=== PATIENT | female | born 1945 | race Caucasian/White ===

== ENCOUNTER 2016-05-25 18:33 | Emergency (ER) | payer MEDICARE ==
[~2016-05-25] VITALS: Ht 167.6 cm; Wt 70.3 kg
--- NOTE | 2016-05-25 18:33 | NUR ---
Dayshift: Patient to ER bed 06 to gown for evaluation. Side rails up. Report given to
[2016-05-25 18:36] VITALS: BP 240/117; PULSE 86; RESP 18; TEMP 97.1; O2SAT 96
--- NOTE | 2016-05-25 18:38 | NUR ---
Patient brought by BLS for right knee deformity in air splint upon arrival s/p slip and fall on wet ground, no K.O.
--- NOTE | 2016-05-25 18:39 | NUR ---
MD Jon at bedside.
[2016-05-25] MEDS ORDERED: LIP20 (18:41)
[2016-05-25] MEDS ORDERED: LISI10TA (18:41)
[2016-05-25] MEDS ORDERED: LORazepam 2 MG/ML VIAL (FOR ER USE) IM ONE (18:45)
[2016-05-25] MEDS ORDERED: MORPHINE 2 MG/ML INJ. SYRINGE IVP ONE (19:15)
[2016-05-25] MEDS ORDERED: ONDANSETRON HCL 4 MG/2 ML VIAL IVP ONE (19:15)
[2016-05-25 19:33] LABS: INR 1.1 (0.8-1.2); PROTHROMBIN TIME 11.8 SECS (9.5-12.5)
[2016-05-25] MEDS ORDERED: cloNIDine HCL 0.1 MG TABLET PO ONE (20:45)
[2016-05-25 21:39] VITALS: BP 185/85; PULSE 72; RESP 16; TEMP 97.9; O2SAT 99
--- NOTE | 2016-05-25 21:42 | NUR ---
Patient to be transferred to [facility] Is being transferred due to higher level of care. Receiving facility has accepting physician and available space. ER physician has signed transfer form. Patient or responsible alliance party has agreed to transfer and signed form. Patient belongings inventoried and will be sent with patient. Copy of nursing notes, lab reports, EKG, Physicians Orders and X-rays to be sent with patient. [facility]
== END 2016-05-25 21:39 | disposition short-term general hospital (02) ==
LOC: SED 18:33
DX: S82.001A Unspecified fracture of right patella, initial encounter for closed fracture (principal); I10 Essential (primary) hypertension; W01.0XXA Fall on same level from slipping, tripping and stumbling without subsequent striking against object, initial encounter; Y93.89 Activity, other specified; Y99.8 Other external cause status; Y92.89 Other specified places as the place of occurrence of the external cause
CPT/HCPCS: 36415; 73560; 85610; 85730; 96374; 99285; J2060; J2270; J2405